=== PATIENT | female | born 1955 | race African-American/Black ===

== ENCOUNTER 2018-04-20 11:28 | Inpatient (IN) | payer OTHER ==
[~2018-04-20] VITALS: Ht 162.6 cm; Wt 85.3 kg
[~2018-04-20 11:28] MED LIST: ASPI-1159 PO; ATOR20TA65 PO; COR12 PO; DIGO125T82 PO; FURO-151 PO; SPIR25TA6 PO; VALS80TA2 PO
[2018-04-20] MEDS ORDERED: KETOROLAC 30MG/ML VIAL IV STA (12:56)
[2018-04-20 13:45] LABS: BASOPHILS % 0.5 % (0.0-2.0); EOSINOPHILS % 2.2 % (0.0-5.0); HEMATOCRIT. 38.2 % (36.0-48.0); HEMOGLOBIN. 12.2 g/dL (12.0-16.0); LYMPHOCYTES % 25.2 % (20.0-50.0); MEAN CORPUSCULAR HEMOGLOBIN 25.6 pg (28.0-32.0); MEAN PLATELET VOLUME 10.1 fl (7.4-10.4); MONOCYTES % 11.5 % (2.0-8.0); NEUTROPHILS % 60.6 % (40.0-76.0); PLATELET 147 x1000/uL (130-400); RED BLOOD CELL COUNT 4.77 mill/uL (4.2-5.4); RED CELL DISTRIBUTION WIDTH 14.8 % (11.6-14.6)
[2018-04-20 13:49] LABS: CHLORIDE 107 mEq/L (98-107)
[2018-04-20 13:50] LABS: INR 1.3; PROTHROMBIN TIME 12.7 sec (9.1-11.1)
[2018-04-20] MEDS ORDERED: ASPIRIN 81MG TABLET PO ONE (16:00)
[2018-04-20] MEDS ORDERED: FUROSEMIDE 20MG/2ML VIAL IVP ONE (16:00)
[2018-04-20] MEDS ORDERED: LORAZEPAM 0.5MG TABLET PO PRN (16:45)
[2018-04-20] MEDS ORDERED: GUAIFENESIN 200MG/10ML SUGAR FREE UDC PO PRN (16:45)
[2018-04-20] MEDS ORDERED: MAGNESIUM/ALUMINUM HYDROXIDE/SIMETHICONE 30ML UDC PO PRN (16:45)
[2018-04-20] MEDS ORDERED: IPRATROPIUM/ALBUTEROL 0.5-3(2.5)MG/3ML NEB INH SCH (16:45)
[2018-04-20] MEDS ORDERED: DOCUSATE SODIUM 100MG CAPSULE PO PRN (16:45)
[2018-04-20] MEDS ORDERED: CLONIDINE 0.1MG TABLET PO PRN (16:45)
[2018-04-20] MEDS ORDERED: IPRATROPIUM/ALBUTEROL 0.5-3(2.5)MG/3ML NEB INH PRN (16:45)
[2018-04-20] MEDS ORDERED: ONDANSETRON HCL 4MG/2ML INJ IV PRN (16:45)
[2018-04-20] MEDS ORDERED: AZITHROMYCIN 500 MG TABLET PO SCH (16:45)
[2018-04-20] MEDS ORDERED: DIPHENHYDRAMINE 50MG/ML VIAL IV PRN (16:45)
[2018-04-20] MEDS ORDERED: ACETAMINOPHEN 650MG SUPP PR PRN (16:45)
[2018-04-20] MEDS ORDERED: HYDROCODONE/ACETAMINOPHEN 5/325MG TABLET PO PRN (16:45)
[2018-04-20] MEDS ORDERED: ACETAMINOPHEN 325MG TABLET PO PRN (16:45)
[2018-04-20 17:40] LABS: BG BASE EXCESS 1.4 mmol/L (-2.0-2.0); BG CARBOXYHEMOGLOBIN 0.8 % (0.5-1.5); BG DEOXYHEMOGLOBIN 3.6 % (0.0-5.0); BG FRACTION INSPIRED OXYGEN 21; BG HCO3 ACT 24.8 mmol/L (22.0-26.0); BG METHEMOGLOBIN 0.4 % (0.0-1.5); BG OXYGEN SATURATION 96.4 % (92.0-98.5); BG OXYHEMOGLOBIN 95.2 % (94.0-97.0); BG PH 7.468 (7.350-7.450); BG PO2 87.7 mmHg (75.0-100.0); BG SAMPLE SITE RIGHT RADIAL; BG TOTAL HEMOGLOBIN 12.7 g/dL (12.0-18.0); BG VENT MODE ROOM AIR
[2018-04-20 18:59] LABS: CLARITY URINE CLEAR (CLEAR); COLOR URINE YELLOW (YELLOW); KETONES URINE NEGATIVE (NEGATIVE); LEUKOCYTE ESTERASE URINE NEGATIVE (NEGATIVE); NITRITE URINE NEGATIVE (NEGATIVE); OCCULT BLOOD URINE NEGATIVE (NEGATIVE); PH URINE 6.5 (4.5-8.0); PROTEIN URINE 1+ (NEGATIVE); SPECIFIC GRAVITY URINE 1.009 (1.005-1.030); UROBILINOGEN URINE 0.2 E.U./dL (0.2-1.0)
[2018-04-20 19:17] LABS: *COCAINE SCREEN URINE NEGATIVE (NEGATIVE); CANNABINOID URINE SCREEN NEGATIVE (NEGATIVE); METHADONE URINE SCREEN NEGATIVE (NEGATIVE); OPIATES URINE SCREEN NEGATIVE (NEGATIVE); PHENCYCLIDINE URINE SCREEN NEGATIVE (NEGATIVE)
[2018-04-20 19:18] LABS: *AMPHETAMINES SCREEN URINE NEGATIVE (NEGATIVE); *BARBITURATES SCREEN URINE NEGATIVE (NEGATIVE); *BENZODIAZEPINES SCREEN URINE NEGATIVE (NEGATIVE)
[2018-04-20] MEDS ORDERED: IPRATROPIUM/ALBUTEROL 0.5-3(2.5)MG/3ML NEB INH NR (20:15)
[2018-04-20] MEDS ORDERED: AZITHROMYCIN 500 MG TABLET PO NR (20:15)
[2018-04-20] MEDS ORDERED: NA PHOS,M-B/NA PHOS,DI-BA ENEMA 118ML PR PRN (21:00)
[2018-04-20 23:52] VITALS: BP 110/65
[2018-04-21] VITALS: BP 110/65
[2018-04-21] MEDS ORDERED: SACU1TAB PO (01:30)
[2018-04-21 04:00] VITALS: BP 100/57
[2018-04-21] MEDS: AZITHROMYCIN 500 MG TABLET PO SCH (05:08)
[2018-04-21 06:58] LABS: CHLORIDE 105 mEq/L (98-107)
[2018-04-21 07:08] LABS: BASOPHILS % 0.7 % (0.0-2.0); EOSINOPHILS % 3.1 % (0.0-5.0); HEMATOCRIT. 36.6 % (36.0-48.0); HEMOGLOBIN. 11.8 g/dL (12.0-16.0); LYMPHOCYTES % 32.3 % (20.0-50.0); MEAN CORPUSCULAR HEMOGLOBIN 25.9 pg (28.0-32.0); MONOCYTES % 10.7 % (2.0-8.0); NEUTROPHILS % 53.2 % (40.0-76.0); RED BLOOD CELL COUNT 4.57 mill/uL (4.2-5.4)
[2018-04-21 07:17] LABS: T4 FREE 1.36 ng/dL (0.76-1.46)
[2018-04-21 07:18] LABS: CREATINE KINASE 76 IU/L (26-192); LDL CHOLESTEROL 45 mg/dL (5-100)
[2018-04-21 07:28] LABS: HDL CHOLESTEROL 31 mg/dL (40-59)
[2018-04-21] MEDS: SPIRONOLACTONE 25MG TABLET PO SCH (08:12)
[2018-04-21] MEDS: LOSARTAN POTASSIUM 50 MG TABLET PO SCH (08:12)
[2018-04-21] MEDS: ENOXAPARIN 40MG/0.4ML SYR SUBCUT SCH (08:13)
[2018-04-21] MEDS ORDERED: MEDICATION NOT ON FORMULARY EA (Spironolactone 25 MG) PO SCH (09:00)
[2018-04-21] MEDS ORDERED: FUROSEMIDE 40MG/4ML VIAL IV SCH (09:00)
[2018-04-21] MEDS ORDERED: MEDICATION NOT ON FORMULARY EA (Valsartan (Diovan) 80 MG) PO SCH (09:00)
[2018-04-21] MEDS ORDERED: POTASSIUM CHLORIDE 20MEQ TABLET SR PO NR (09:15)
[2018-04-21 16:00] VITALS: BP 102/57
[2018-04-21] MEDS: FUROSEMIDE 40MG/4ML VIAL IV SCH (18:13)
[2018-04-21] MEDS: DIGOXIN 125MCG TABLET PO SCH (18:13)
[2018-04-21 20:00] VITALS: BP 110/45
[2018-04-21] MEDS ORDERED: ATORVASTATIN CALCIUM 20MG TABLET PO SCH (21:00)
[2018-04-22 04:00] VITALS: BP_SYST 108; BP_DIAS 44; BP_DIAS 46
[2018-04-22] MEDS: AZITHROMYCIN 500 MG TABLET PO SCH (05:27)
[2018-04-22 06:10] LABS: HEMATOCRIT 34.9 % (36.0-48.0); HEMOGLOBIN 11.3 g/dL (12.0-16.0); MEAN CORPUSCULAR HEMOGLOBIN 25.9 pg (28.0-32.0); MEAN CORPUSCULAR VOLUME 79.8 fL (81.0-99.0); PLATELET 144 x1000/uL (130-400); RED BLOOD CELL COUNT 4.37 mill/uL (4.2-5.4); RED CELL DISTRIBUTION WIDTH 15.2 % (11.6-14.6)
[2018-04-22] MEDS: FUROSEMIDE 40MG/4ML VIAL IV SCH ×2 (06:33→17:43)
[2018-04-22 06:39] LABS: CHLORIDE 106 mEq/L (98-107)
[2018-04-22 08:00] VITALS: BP 100/58
[2018-04-22] MEDS ORDERED: POTASSIUM CHLORIDE 20MEQ TABLET SR PO SCH (09:00)
[2018-04-22] MEDS: LOSARTAN POTASSIUM 50 MG TABLET PO SCH (09:00)
[2018-04-22] MEDS: SPIRONOLACTONE 25MG TABLET PO SCH (09:20)
[2018-04-22] MEDS: ENOXAPARIN 40MG/0.4ML SYR SUBCUT SCH (09:21)
[2018-04-22] MEDS ORDERED: POTASSIUM CHLORIDE 20MEQ TABLET SR PO NR (09:45)
[2018-04-22 12:00] VITALS: BP 115/78
[2018-04-22 16:00] VITALS: BP 111/65
[2018-04-22] MEDS ORDERED: CARVEDILOL 3.125 MG TABLET PO NR (17:41)
[2018-04-22] MEDS: DIGOXIN 125MCG TABLET PO SCH (17:51)
[2018-04-22 19:30] VITALS: BP 113/63
[2018-04-22 20:00] VITALS: BP 100/61
== END 2018-04-22 20:05 | disposition home or self-care (01) | DRG 292 ==
LOC: ER 11:28 → 7WST 15:59 → EDBEDREQTM 16:01 → EDBEDREQ 16:01 → ENRESERV 22:42
PROVIDERS: ADMIT Internal Medicine; ATTEND Internal Medicine
DX: I11.0 Hypertensive heart disease with heart failure (principal); E44.1 Mild protein-calorie malnutrition; I50.23 Acute on chronic systolic (congestive) heart failure; I42.0 Dilated cardiomyopathy; J06.9 Acute upper respiratory infection, unspecified; R73.9 Hyperglycemia, unspecified; E66.9 Obesity, unspecified; E78.5 Hyperlipidemia, unspecified; E87.6 Hypokalemia; I27.20 Pulmonary hypertension, unspecified; I34.0 Nonrheumatic mitral (valve) insufficiency; Z90.710 Acquired absence of both cervix and uterus; Z95.810 Presence of automatic (implantable) cardiac defibrillator; Z88.2 Allergy status to sulfonamides; Z79.82 Long term (current) use of aspirin; Z79.899 Other long term (current) drug therapy; Z68.32 Body mass index [BMI] 32.0-32.9, adult; R06.03 Acute respiratory distress
CPT/HCPCS: 36415; 36600; 71045; 76705; 80048; 80061; 80162; 80305; 82375; 82550; 82553; 82805; 83036; 83880; 84439; 84443; 84484; 85027; 93005; 93306; 93970; 97116; 97162; 97535; 99285; J1650; J1885; J1940; J7620

== ENCOUNTER 2019-05-27 19:07 | Emergency (ER) | payer OTHER ==
[~2019-05-27] VITALS: Ht 162.6 cm; Wt 80.0 kg
[~2019-05-27 19:07] MED LIST changes: -ASPI-1159 PO; +ASPI-1497 PO; -COR12 PO; +DIGO125T PO; -DIGO125T82 PO; -FURO-151 PO; +SACU1TAB PO; -VALS80TA2 PO
[2019-05-27 19:52] VITALS: BP 92/67
[2019-05-27 20:26] LABS: CLARITY URINE CLOUDY (CLEAR); COLOR URINE YELLOW (YELLOW); KETONES URINE TRACE (NEGATIVE); LEUKOCYTE ESTERASE URINE TRACE (NEGATIVE); NITRITE URINE NEGATIVE (NEGATIVE); OCCULT BLOOD URINE NEGATIVE (NEGATIVE); PROTEIN URINE 1+ (NEGATIVE); UROBILINOGEN URINE 0.2 E.U./dL (0.2-1.0)
[2019-05-27] MEDS ORDERED: ACETAMINOPHEN WITH CODEINE 300/30MG TABLET PO STA (20:39)
[2019-05-27] MEDS ORDERED: ASPIRIN 81MG TABLET PO ONE (20:45)
[2019-05-27 21:24] LABS: BASOPHILS % 0.4 % (0.0-2.0); EOSINOPHILS % 2.1 % (0.0-5.0); HEMATOCRIT. 34.2 % (36.0-48.0); HEMOGLOBIN. 11.2 g/dL (12.0-16.0); LYMPHOCYTES % 25.4 % (20.0-50.0); MEAN CORPUSCULAR HEMOGLOBIN 27.1 pg (28.0-32.0); MEAN CORPUSCULAR VOLUME 83.1 fL (81.0-99.0); MEAN PLATELET VOLUME 9.7 fl (7.4-10.4); MONOCYTES % 9.7 % (2.0-8.0); NEUTROPHILS % 62.4 % (40.0-76.0); PLATELET 197 x1000/uL (130-400); RED BLOOD CELL COUNT 4.12 mill/uL (4.2-5.4); RED CELL DISTRIBUTION WIDTH 13.7 % (11.6-14.6)
[2019-05-27 21:30] LABS: CHLORIDE 109 mEq/L (98-107)
[2019-05-27] MEDS ORDERED: FUROSEMIDE 40MG TABLET PO ONE (23:15)
== END 2019-05-27 23:24 | disposition home or self-care (01) ==
LOC: ER 19:07 → CANBEDREQ 05-28 00:22
DX: M54.9 Dorsalgia, unspecified (principal); N30.90 Cystitis, unspecified without hematuria; I50.9 Heart failure, unspecified; I95.9 Hypotension, unspecified; Z88.2 Allergy status to sulfonamides; Z95.0 Presence of cardiac pacemaker; Z79.82 Long term (current) use of aspirin
CPT/HCPCS: 36415; 71045; 80053; 81003; 83880; 84484; 85025; 93005; 99285; Z7610

== ENCOUNTER 2019-06-08 17:28 | Inpatient (IN) | payer OTHER ==
[~2019-06-08] VITALS: Ht 156.2 cm; Wt 83.9 kg
[2019-06-08] MEDS ORDERED: MORPHINE SULFATE 4 MG/ML CPJ (NOT FOR IM USE) IV STA (23:41)
[2019-06-08] MEDS ORDERED: ONDANSETRON HCL 4MG/2ML INJ IV STA (23:41)
[2019-06-08] MEDS ORDERED: CEFTRIAXONE 1 G PREMIX 50 ML IV ONE (23:45)
[2019-06-09 00:02] LABS: CHLORIDE 103 mEq/L (98-107)
[2019-06-09 00:34] LABS: CLARITY URINE CLEAR (CLEAR); COLOR URINE ORANGE (YELLOW); KETONES URINE TRACE (NEGATIVE); LEUKOCYTE ESTERASE URINE TRACE (NEGATIVE); NITRITE URINE NEGATIVE (NEGATIVE); OCCULT BLOOD URINE NEGATIVE (NEGATIVE); PROTEIN URINE TRACE (NEGATIVE); SPECIFIC GRAVITY URINE 1.017 (1.005-1.030)
[2019-06-09 01:23] LABS: EOSINOPHILS % 5.2 % (0.0-5.0); HEMATOCRIT. 33.4 % (36.0-48.0); HEMOGLOBIN. 11.1 g/dL (12.0-16.0); LYMPHOCYTES % 15.7 % (20.0-50.0); MEAN CORPUSCULAR HEMOGLOBIN 28.5 pg (28.0-32.0); MEAN CORPUSCULAR VOLUME 85.9 fL (81.0-99.0); MEAN PLATELET VOLUME 11.3 fl (7.4-10.4); MONOCYTES % 10.8 % (2.0-8.0); NEUTROPHILS % 67.3 % (40.0-76.0); PLATELET 117 x1000/uL (130-400); RED BLOOD CELL COUNT 3.88 mill/uL (4.2-5.4); RED CELL DISTRIBUTION WIDTH 15.3 % (11.6-14.6)
[2019-06-09 08:30] VITALS: BP 90/48
[2019-06-09] MEDS ORDERED: FURO40TA5 PO (09:27)
[2019-06-09] MEDS ORDERED: POTA20LI52 GT (09:27)
[2019-06-09] MEDS ORDERED: PANT40TA4 PO (09:27)
[2019-06-09] MEDS ORDERED: CARV6.2548 PO (09:27)
[2019-06-09] MEDS ORDERED: MAGNESIUM/ALUMINUM HYDROXIDE/SIMETHICONE 30ML UDC PO PRN (11:00)
[2019-06-09] MEDS: FUROSEMIDE 40MG/4ML VIAL IVP SCH ×3 (11:00→21:17)
[2019-06-09] MEDS ORDERED: ACETAMINOPHEN 650MG SUPP PR PRN (11:00)
[2019-06-09] MEDS ORDERED: ONDANSETRON HCL 4MG/2ML INJ IV PRN (11:00)
[2019-06-09] MEDS ORDERED: IPRATROPIUM/ALBUTEROL 0.5-3(2.5)MG/3ML NEB NEB PRN (11:00)
[2019-06-09] MEDS ORDERED: ACETAMINOPHEN 650MG/20.3ML UDC GT PRN (11:00)
[2019-06-09] MEDS ORDERED: LORAZEPAM 0.5MG TABLET PO PRN (11:00)
[2019-06-09] MEDS ORDERED: GUAIFENESIN 200MG/10ML SUGAR FREE UDC PO PRN (11:00)
[2019-06-09] MEDS ORDERED: NA PHOS,M-B/NA PHOS,DI-BA ENEMA 118ML PR PRN (11:00)
[2019-06-09] MEDS ORDERED: MORPHINE SULFATE 2 MG/ML CPJ (NOT FOR IM USE) IV PRN (11:00)
[2019-06-09] MEDS ORDERED: DOCUSATE SODIUM 100MG CAPSULE PO PRN (11:00)
[2019-06-09] MEDS ORDERED: CLONIDINE 0.1MG TABLET PO PRN (11:00)
[2019-06-09] MEDS: ACETAMINOPHEN 325MG TABLET PO PRN ×2 (11:26→21:23)
[2019-06-09 12:00] VITALS: BP 90/50
[2019-06-09] MEDS: FAMOTIDINE 20MG/2ML VIAL IV SCH (13:35)
[2019-06-09] MEDS: PIPERACILLIN/TAZOBACTAM 3.375 G in DEXT 5% WATER 100 ML IV SCH ×2 (13:36→18:57)
[2019-06-09] MEDS: MIDODRINE HCL 5MG TABLET PO PRN (13:59)
[2019-06-09 15:41] LABS: INR 1.2; PROTHROMBIN TIME 12.5 sec (9.6-11.0)
[2019-06-09 15:46] LABS: CHLORIDE 103 mEq/L (98-107)
[2019-06-09 16:00] VITALS: BP 99/54
[2019-06-09 16:10] LABS: DIGOXIN 0.9 ng/mL (0.9-2.0)
[2019-06-09 16:49] LABS: BG BASE EXCESS 0.1 mmol/L (-2.0-2.0); BG CARBOXYHEMOGLOBIN 0.3 % (0.5-1.5); BG DEOXYHEMOGLOBIN 5.9 % (0.0-5.0); BG FRACTION INSPIRED OXYGEN 21; BG HCO3 ACT 24.3 mmol/L (22.0-26.0); BG METHEMOGLOBIN 0.2 % (0.0-1.5); BG OXYGEN SATURATION 94.1 % (92.0-98.5); BG OXYHEMOGLOBIN 93.6 % (94.0-97.0); BG PCO2 37.9 mmHg (35.0-45.0); BG PH 7.425 (7.350-7.450); BG PO2 72.9 mmHg (75.0-100.0); BG SAMPLE SITE RIGHT RADIAL; BG TOTAL HEMOGLOBIN 11.1 g/dL (12.0-18.0); BG VENT MODE ROOM AIR
[2019-06-09 18:03] LABS: BASOPHILS % 0.8 % (0.0-2.0); HEMATOCRIT. 32.6 % (36.0-48.0); HEMOGLOBIN. 10.7 g/dL (12.0-16.0); LYMPHOCYTES % 14.5 % (20.0-50.0); MEAN CORPUSCULAR HEMOGLOBIN 28.4 pg (28.0-32.0); MEAN CORPUSCULAR VOLUME 87.1 fL (81.0-99.0); MEAN PLATELET VOLUME 11.2 fl (7.4-10.4); MONOCYTES % 13.2 % (2.0-8.0); NEUTROPHILS % 64.5 % (40.0-76.0); PLATELET 86 x1000/uL (130-400); RED BLOOD CELL COUNT 3.75 mill/uL (4.2-5.4); RED CELL DISTRIBUTION WIDTH 16.2 % (11.6-14.6)
[2019-06-09 20:05] LABS: PLATELET ESTIMATE DECREASED
[2019-06-10] MEDS: PIPERACILLIN/TAZOBACTAM 3.375 G in DEXT 5% WATER 100 ML IV SCH ×5 (01:56→23:36)
[2019-06-10 07:13] LABS: HEMATOCRIT. 30.1 % (36.0-48.0); MEAN CORPUSCULAR HEMOGLOBIN 28.5 pg (28.0-32.0); MEAN PLATELET VOLUME 10.7 fl (7.4-10.4); RED CELL DISTRIBUTION WIDTH 15.9 % (11.6-14.6)
[2019-06-10 08:00] VITALS: BP 99/44
[2019-06-10 08:00] LABS: CHLORIDE 104 mEq/L (98-107)
[2019-06-10 08:08] LABS: LDL CHOLESTEROL 52 mg/dL (5-100)
[2019-06-10 08:10] LABS: HDL CHOLESTEROL 33 mg/dL (40-59); T4 FREE 1.41 ng/dL (0.76-1.46)
[2019-06-10 08:13] LABS: HEPATITIS B SURFACE ANTIGEN NEGATIVE
[2019-06-10 08:24] LABS: PLATELET ESTIMATE NORMAL
[2019-06-10] MEDS: MIDODRINE HCL 5MG TABLET PO PRN (08:26)
[2019-06-10] MEDS: HYDROCODONE/ACETAMINOPHEN 5/325MG TABLET PO PRN (08:28)
[2019-06-10 08:42] LABS: HEPATITIS A AB IGM NEGATIVE (NEGATIVE)
[2019-06-10] MEDS: FAMOTIDINE 20MG/2ML VIAL IV SCH (11:33)
[2019-06-10] MEDS: FUROSEMIDE 40MG/4ML VIAL IVP SCH (11:33)
[2019-06-10 12:00] VITALS: BP 94/47
[2019-06-10] MEDS ORDERED: LACTULOSE 20G/30ML UDC PO NR (13:30)
[2019-06-10 16:00] VITALS: BP 96/50
[2019-06-10] MEDS: DOCUSATE SODIUM 250MG CAPSULE PO SCH (16:26)
[2019-06-10 17:20] LABS: TOTAL IRON BINDING CAPACITY 410 ug/dL (250-450)
[2019-06-10] MEDS ORDERED: DIGOXIN 125MCG TABLET PO SCH (18:00)
[2019-06-10] MEDS: CARVEDILOL 3.125 MG TABLET PO SCH (20:25)
[2019-06-11 00:04] VITALS: BP 106/51
[2019-06-11 04:48] VITALS: BP 83/41
[2019-06-11] MEDS: PIPERACILLIN/TAZOBACTAM 3.375 G in DEXT 5% WATER 100 ML IV SCH ×2 (06:00→12:57)
[2019-06-11] MEDS: ACETAMINOPHEN 325MG TABLET PO PRN (06:00)
[2019-06-11] MEDS: MIDODRINE HCL 5MG TABLET PO PRN (06:00)
[2019-06-11 06:08] LABS: CHLORIDE 104 mEq/L (98-107)
[2019-06-11 06:37] LABS: BASOPHILS % 1.5 % (0.0-2.0); EOSINOPHILS % 5.8 % (0.0-5.0); HEMATOCRIT. 32.1 % (36.0-48.0); HEMOGLOBIN. 10.6 g/dL (12.0-16.0); LYMPHOCYTES % 20.6 % (20.0-50.0); MEAN CORPUSCULAR HEMOGLOBIN 28.4 pg (28.0-32.0); MEAN CORPUSCULAR VOLUME 86.1 fL (81.0-99.0); MONOCYTES % 14.9 % (2.0-8.0); NEUTROPHILS % 57.2 % (40.0-76.0); RED BLOOD CELL COUNT 3.72 mill/uL (4.2-5.4); RED CELL DISTRIBUTION WIDTH 15.7 % (11.6-14.6)
[2019-06-11] MEDS ORDERED: OMEPRAZOLE 20MG CAPSULE EXTENDED RELEASE PO SCH (07:40)
[2019-06-11 08:00] VITALS: BP 104/50
[2019-06-11] MEDS ORDERED: FUROSEMIDE 40MG/4ML VIAL IVP SCH (09:00)
[2019-06-11] MEDS: DOCUSATE SODIUM 250MG CAPSULE PO SCH (10:07)
[2019-06-11] MEDS: CARVEDILOL 3.125 MG TABLET PO SCH (10:08)
[2019-06-11] MEDS: HYDROCODONE/ACETAMINOPHEN 5/325MG TABLET PO PRN (10:16)
[2019-06-11 12:00] VITALS: BP_SYST 105; BP_SYST 97; BP_SYST 99; BP_DIAS 53; BP_DIAS 54; BP_DIAS 58
[2019-06-11] MEDS ORDERED: MIDO10TA MT (12:41)
[2019-06-11] MEDS ORDERED: BLOO1KIT74 TP (12:41)
[2019-06-11] MEDS ORDERED: HYDR-4001 MT (12:41)
[2019-06-11] MEDS ORDERED: COR3 MT (12:41)
[2019-06-11] MEDS ORDERED: DOCU-138 MT (12:43)
[2019-06-11] MEDS ORDERED: METOCLOPRAMIDE HCL 10MG/2ML VIAL IV SCH (13:00)
[2019-06-11] MEDS ORDERED: LEVO500T2 PO (14:17)
[2019-06-11 15:09] VITALS: BP 108/65
[2019-06-12] MEDS ORDERED: ENOXAPARIN 30MG/0.3ML SYR SUBCUT SCH (09:00)
== END 2019-06-11 15:49 | disposition home or self-care (01) | DRG 682 ==
LOC: ER 17:28 → EDBEDREQDT 06-09 03:02 → EDBEDREQ 06-09 03:02 → EDBEDREQTM 06-09 03:02 → 7WST 06-09 03:02 → ENRESERV 06-09 07:45
PROVIDERS: ADMIT Internal Medicine; ATTEND Internal Medicine
DX: N17.9 Acute kidney failure, unspecified (principal); J18.9 Pneumonia, unspecified organism; J96.01 Acute respiratory failure with hypoxia; I13.0 Hypertensive heart and chronic kidney disease with heart failure and stage 1 through stage 4 chronic kidney disease, or unspecified chronic kidney disease; I42.0 Dilated cardiomyopathy; I50.9 Heart failure, unspecified; D64.9 Anemia, unspecified; E78.5 Hyperlipidemia, unspecified; E80.6 Other disorders of bilirubin metabolism; K57.30 Diverticulosis of large intestine without perforation or abscess without bleeding; D69.6 Thrombocytopenia, unspecified; I08.1 Rheumatic disorders of both mitral and tricuspid valves; K59.00 Constipation, unspecified; E87.5 Hyperkalemia; N18.9 Chronic kidney disease, unspecified; Z85.118 Personal history of other malignant neoplasm of bronchus and lung; Z90.710 Acquired absence of both cervix and uterus; Z79.899 Other long term (current) drug therapy; Z82.3 Family history of stroke; Z82.49 Family history of ischemic heart disease and other diseases of the circulatory system; Z88.2 Allergy status to sulfonamides; Z79.82 Long term (current) use of aspirin
CPT/HCPCS: 36415; 36600; 71045; 71110; 71250; 74018; 74176; 76700; 80053; 80061; 80076; 80162; 81003; 82248; 82270; 82375; 82728; 82805; 83540; 83550; 83605; 83880; 84439; 84443; 84484; 85025; 85049; 86705; 86709; 86803; 87340; 93005; 93306; 93970; 97161; 99285; J0696; J1940; J2270; J2405; J2543; J3490; J7060

== ENCOUNTER 2019-06-29 19:28 | Inpatient (IN) | payer OTHER ==
[~2019-06-29] VITALS: Ht 162.6 cm; Wt 84.4 kg
[~2019-06-29 19:28] MED LIST changes: -ASPI-1497 PO; -ATOR20TA65 PO; +BLOO1KIT74 TP; +COR3 MT; +DOCU-138 MT; +HYDR-4001 MT; +LEVO500T2 PO; +MIDO10TA MT; +PANT40TA4 PO; -SPIR25TA6 PO
[2019-06-29] MEDS ORDERED: ONDANSETRON HCL 4MG/2ML INJ IV ONE (21:30)
[2019-06-29 21:34] LABS: BASOPHILS % 1.4 % (0.0-2.0); EOSINOPHILS % 1.8 % (0.0-5.0); HEMATOCRIT. 38.8 % (36.0-48.0); HEMOGLOBIN. 12.6 g/dL (12.0-16.0); LYMPHOCYTES % 20.5 % (20.0-50.0); MEAN CORPUSCULAR HEMOGLOBIN 27.8 pg (28.0-32.0); MEAN CORPUSCULAR VOLUME 85.9 fL (81.0-99.0); MEAN PLATELET VOLUME 10.9 fl (7.4-10.4); MONOCYTES % 14.5 % (2.0-8.0); NEUTROPHILS % 61.8 % (40.0-76.0); PLATELET 158 x1000/uL (130-400); RED BLOOD CELL COUNT 4.52 mill/uL (4.2-5.4); RED CELL DISTRIBUTION WIDTH 15.7 % (11.6-14.6)
[2019-06-29 21:41] LABS: CHLORIDE 101 mEq/L (98-107)
[2019-06-30] VITALS (25 sets, daily range): BP systolic 90–137; BP diastolic 41–95
[2019-06-30] MEDS ORDERED: FURO-151 PO (00:25)
[2019-06-30] MEDS ORDERED: POTA20TA82 PO (00:25)
[2019-06-30] MEDS ORDERED: ASPI-1497 PO (00:25)
[2019-06-30] MEDS ORDERED: ONDANSETRON HCL 4MG/2ML INJ IV PRN (01:00)
[2019-06-30] MEDS: PANTOPRAZOLE 40MG DR TABLET PO SCH (05:58)
[2019-06-30] MEDS ORDERED: ENOXAPARIN 40MG/0.4ML SYR SUBCUT SCH (09:00)
[2019-06-30] MEDS ORDERED: ASPIRIN 81MG EC TABLET PO SCH (09:00)
[2019-06-30] MEDS: FUROSEMIDE 40MG TABLET PO SCH ×2 (09:14→20:28)
[2019-06-30] MEDS: CARVEDILOL 3.125 MG TABLET PO SCH ×2 (09:14→20:31)
[2019-06-30] MEDS ORDERED: HYDROCODONE/ACETAMINOPHEN 5/325MG TABLET PO PRN (11:00)
[2019-06-30 11:52] LABS: BG BASE EXCESS 2.9 mmol/L (-2.0-2.0); BG CARBOXYHEMOGLOBIN 0.9 % (0.5-1.5); BG DEOXYHEMOGLOBIN 4.3 % (0.0-5.0); BG FRACTION INSPIRED OXYGEN 21; BG HCO3 ACT 25.6 mmol/L (22.0-26.0); BG METHEMOGLOBIN 0.2 % (0.0-1.5); BG OXYGEN SATURATION 95.7 % (92.0-98.5); BG OXYHEMOGLOBIN 94.6 % (94.0-97.0); BG PCO2 33.3 mmHg (35.0-45.0); BG PH 7.504 (7.350-7.450); BG PO2 77.7 mmHg (75.0-100.0); BG SAMPLE SITE RIGHT RADIAL; BG VENT MODE ROOM AIR
[2019-06-30 12:24] LABS: BASOPHILS % 0.8 % (0.0-2.0); EOSINOPHILS % 0.2 % (0.0-5.0); HEMATOCRIT. 40.7 % (36.0-48.0); HEMOGLOBIN. 13.3 g/dL (12.0-16.0); LYMPHOCYTES % 16.9 % (20.0-50.0); MEAN CORPUSCULAR HEMOGLOBIN 28.1 pg (28.0-32.0); MEAN CORPUSCULAR VOLUME 85.8 fL (81.0-99.0); MONOCYTES % 9.5 % (2.0-8.0); NEUTROPHILS % 72.6 % (40.0-76.0); PLATELET 132 x1000/uL (130-400); RED BLOOD CELL COUNT 4.74 mill/uL (4.2-5.4); RED CELL DISTRIBUTION WIDTH 15.6 % (11.6-14.6)
[2019-06-30] MEDS ORDERED: MAGNESIUM 1 G PREMIX 100 ML IV SCH (13:00)
[2019-06-30] MEDS ORDERED: LORAZEPAM 2MG/ML CPJ IV SCH (13:00)
[2019-06-30 13:05] LABS: INR 1.2; PROTHROMBIN TIME 12.5 sec (9.6-11.0)
[2019-06-30] MEDS: LEVETIRACETAM 500MG PREMIX 100 ML IV SCH ×2 (13:31→23:26)
[2019-06-30] MEDS ORDERED: [UNRECOGNIZED DRUG - REMARK] XX SCH (14:30)
[2019-06-30] MEDS ORDERED: LORAZEPAM 2MG/ML CPJ IV PRN (16:45)
[2019-06-30] MEDS ORDERED: ACETAMINOPHEN 650MG SUPP PR PRN (17:00)
[2019-06-30] MEDS: MAGNESIUM OXIDE 400MG TABLET PO SCH (17:21)
[2019-06-30 18:31] LABS: CLARITY URINE CLEAR (CLEAR); COLOR URINE YELLOW (YELLOW); KETONES URINE NEGATIVE (NEGATIVE); LEUKOCYTE ESTERASE URINE NEGATIVE (NEGATIVE); NITRITE URINE NEGATIVE (NEGATIVE); OCCULT BLOOD URINE NEGATIVE (NEGATIVE); PROTEIN URINE NEGATIVE (NEGATIVE)
[2019-06-30 21:01] LABS: CREATINE KINASE 82 IU/L (26-192)
[2019-06-30 21:02] LABS: CREATINE KINASE MB FRACTION < 1.0 ng/mL (0.5-3.6)
[2019-07-01] VITALS (37 sets, daily range): BP systolic 85–126; BP diastolic 39–87
[2019-07-01] MEDS: ACETAMINOPHEN 325MG TABLET PO PRN ×2 (01:44→18:32)
[2019-07-01 05:44] LABS: BASOPHILS % 0.7 % (0.0-2.0); EOSINOPHILS % 0.3 % (0.0-5.0); HEMATOCRIT. 35.3 % (36.0-48.0); HEMOGLOBIN. 11.6 g/dL (12.0-16.0); LYMPHOCYTES % 13.7 % (20.0-50.0); MEAN CORPUSCULAR HEMOGLOBIN 27.9 pg (28.0-32.0); MONOCYTES % 12.4 % (2.0-8.0); NEUTROPHILS % 72.9 % (40.0-76.0); RED BLOOD CELL COUNT 4.16 mill/uL (4.2-5.4); RED CELL DISTRIBUTION WIDTH 15.5 % (11.6-14.6)
[2019-07-01] MEDS: MAGNESIUM OXIDE 400MG TABLET PO SCH (08:30)
[2019-07-01] MEDS: LEVETIRACETAM 500MG PREMIX 100 ML IV SCH ×2 (08:32→21:00)
[2019-07-01] MEDS: FUROSEMIDE 40MG TABLET PO SCH (08:32)
[2019-07-01] MEDS: PANTOPRAZOLE 40MG DR TABLET PO SCH (08:32)
[2019-07-01 09:05] LABS: PLATELET 109 x1000/uL (130-400)
[2019-07-01] MEDS ORDERED: POTASSIUM CHLORIDE 20MEQ/PACKET PO SCH (09:15)
[2019-07-01] MEDS: CARVEDILOL 3.125 MG TABLET PO SCH ×3 (09:40→21:00)
[2019-07-01] MEDS ORDERED: LIDOCAINE HCL 2% 5ML SYRINGE IV SCH (10:00)
[2019-07-01] MEDS ORDERED: LIDOCAINE 2G PREMIX 500 ML IV SCH (10:00)
[2019-07-01] MEDS ORDERED: KCL 20MEQ/100ML PREMIX 100 ML IV SCH (11:00)
[2019-07-01] MEDS ORDERED: POTASSIUM CHLORIDE 20MEQ/PACKET PO NR (13:00)
[2019-07-01] MEDS ORDERED: MAGNESIUM 1 G PREMIX 100 ML IV NR (14:00)
[2019-07-02] VITALS (25 sets, daily range): BP systolic 86–160; BP diastolic 51–123
[2019-07-02] MEDS: MAGNESIUM OXIDE 400MG TABLET PO SCH (08:23)
[2019-07-02] MEDS: PANTOPRAZOLE 40MG DR TABLET PO SCH (08:23)
[2019-07-02] MEDS: CARVEDILOL 3.125 MG TABLET PO SCH (08:24)
[2019-07-02 08:42] LABS: BASOPHILS % 0.7 % (0.0-2.0); HEMATOCRIT. 38.9 % (36.0-48.0); HEMOGLOBIN. 12.7 g/dL (12.0-16.0); LYMPHOCYTES % 12.1 % (20.0-50.0); MEAN CORPUSCULAR HEMOGLOBIN 27.9 pg (28.0-32.0); MEAN CORPUSCULAR VOLUME 85.3 fL (81.0-99.0); MONOCYTES % 13.6 % (2.0-8.0); NEUTROPHILS % 73.6 % (40.0-76.0); RED BLOOD CELL COUNT 4.57 mill/uL (4.2-5.4); RED CELL DISTRIBUTION WIDTH 15.6 % (11.6-14.6)
[2019-07-02] MEDS ORDERED: POTASSIUM CHLORIDE 20MEQ TABLET SR PO SCH (09:00)
[2019-07-02 09:21] LABS: PLATELET ESTIMATE DECREASED
[2019-07-02] MEDS ORDERED: SODIUM CHLORIDE 0.45% 1,000 ML IV SCH (10:00)
[2019-07-02 16:22] LABS: BASOPHILS % 1.1 % (0.0-2.0); EOSINOPHILS % 0.3 % (0.0-5.0); HEMATOCRIT. 38.4 % (36.0-48.0); HEMOGLOBIN. 12.4 g/dL (12.0-16.0); LYMPHOCYTES % 12.8 % (20.0-50.0); MEAN CORPUSCULAR HEMOGLOBIN 27.9 pg (28.0-32.0); MEAN CORPUSCULAR VOLUME 86.3 fL (81.0-99.0); MEAN PLATELET VOLUME 11.3 fl (7.4-10.4); MONOCYTES % 12.4 % (2.0-8.0); NEUTROPHILS % 73.4 % (40.0-76.0); PLATELET 113 x1000/uL (130-400); RED BLOOD CELL COUNT 4.45 mill/uL (4.2-5.4); RED CELL DISTRIBUTION WIDTH 15.7 % (11.6-14.6)
[2019-07-03] VITALS (23 sets, daily range): BP systolic 97–144; BP diastolic 42–81
[2019-07-03 05:56] LABS: BASOPHILS % 1.2 % (0.0-2.0); EOSINOPHILS % 0.7 % (0.0-5.0); HEMATOCRIT. 37.2 % (36.0-48.0); HEMOGLOBIN. 12.2 g/dL (12.0-16.0); LYMPHOCYTES % 18.4 % (20.0-50.0); MEAN CORPUSCULAR VOLUME 85.5 fL (81.0-99.0); MONOCYTES % 14.3 % (2.0-8.0); NEUTROPHILS % 65.4 % (40.0-76.0); RED BLOOD CELL COUNT 4.35 mill/uL (4.2-5.4); RED CELL DISTRIBUTION WIDTH 15.3 % (11.6-14.6)
[2019-07-03] MEDS: PANTOPRAZOLE 40MG DR TABLET PO SCH (08:23)
[2019-07-03] MEDS: POTASSIUM CHLORIDE 20MEQ TABLET SR PO SCH (08:24)
[2019-07-03] MEDS: MAGNESIUM OXIDE 400MG TABLET PO SCH (08:24)
[2019-07-03 10:39] LABS: BG BASE EXCESS 4.5 mmol/L (-2.0-2.0); BG CARBOXYHEMOGLOBIN 0.5 % (0.5-1.5); BG DEOXYHEMOGLOBIN 5.2 % (0.0-5.0); BG FRACTION INSPIRED OXYGEN 21; BG HCO3 ACT 28.3 mmol/L (22.0-26.0); BG METHEMOGLOBIN 0.5 % (0.0-1.5); BG OXYGEN SATURATION 94.7 % (92.0-98.5); BG OXYHEMOGLOBIN 93.8 % (94.0-97.0); BG PCO2 39.1 mmHg (35.0-45.0); BG PH 7.477 (7.350-7.450); BG PO2 73.1 mmHg (75.0-100.0); BG SAMPLE SITE RIGHT RADIAL; BG TOTAL HEMOGLOBIN 13.1 g/dL (12.0-18.0); BG VENT MODE ROOM AIR
[2019-07-03 11:14] LABS: CHLORIDE 100 mEq/L (98-107)
[2019-07-03] MEDS ORDERED: ONDANSETRON HCL 4MG/2ML INJ IV NR (18:45)
[2019-07-04] VITALS (14 sets, daily range): BP systolic 94–163; BP diastolic 50–75
[2019-07-04 06:01] LABS: HEMOGLOBIN 12.6 g/dL (12.0-16.0); MEAN CORPUSCULAR HEMOGLOBIN 27.8 pg (28.0-32.0); MEAN CORPUSCULAR VOLUME 85.6 fL (81.0-99.0); RED BLOOD CELL COUNT 4.55 mill/uL (4.2-5.4); RED CELL DISTRIBUTION WIDTH 15.4 % (11.6-14.6)
[2019-07-04 06:55] LABS: PHOSPHORUS 2.6 mg/dL (2.5-4.9)
[2019-07-04] MEDS: POTASSIUM CHLORIDE 20MEQ TABLET SR PO SCH (08:44)
[2019-07-04] MEDS: MAGNESIUM OXIDE 400MG TABLET PO SCH (08:44)
[2019-07-04] MEDS: PANTOPRAZOLE 40MG DR TABLET PO SCH (08:44)
[2019-07-04] MEDS: ASPIRIN 81MG EC TABLET PO SCH (11:07)
[2019-07-05] VITALS (8 sets, daily range): BP systolic 97–131; BP diastolic 45–68
[2019-07-05 06:32] LABS: HEMATOCRIT. 36.4 % (36.0-48.0); HEMOGLOBIN. 11.8 g/dL (12.0-16.0); MEAN CORPUSCULAR HEMOGLOBIN 27.5 pg (28.0-32.0); MEAN CORPUSCULAR VOLUME 84.8 fL (81.0-99.0); RED CELL DISTRIBUTION WIDTH 15.9 % (11.6-14.6)
[2019-07-05 07:18] LABS: CHLORIDE 100 mEq/L (98-107)
[2019-07-05] MEDS: POTASSIUM CHLORIDE 20MEQ TABLET SR PO SCH (08:49)
[2019-07-05] MEDS: MAGNESIUM OXIDE 400MG TABLET PO SCH (08:49)
[2019-07-05] MEDS: ASPIRIN 81MG EC TABLET PO SCH (08:49)
[2019-07-05] MEDS ORDERED: PANTOPRAZOLE 40MG DR TABLET PO SCH (09:00)
[2019-07-05 10:07] LABS: NUCLEATED RED BLOOD CELLS 2 /100 WBC
[2019-07-05] MEDS ORDERED: METOCLOPRAMIDE HCL 10MG/2ML VIAL IV SCH (13:30)
[2019-07-05] MEDS ORDERED: FURO-151 MT (13:36)
[2019-07-05] MEDS ORDERED: METO5TAB86 MT (13:36)
[2019-07-05] MEDS ORDERED: SACU1TAB MT (13:36)
[2019-07-05] MEDS ORDERED: COR3 MT (13:36)
[2019-07-05] MEDS ORDERED: ASPI-1497 MT (13:36)
== END 2019-07-05 15:20 | disposition home or self-care (01) | DRG 73 ==
LOC: ER 19:28 → 5WST 22:43 → ENRESERV 23:12 → CVICU 06-30 13:20 → 3WST 07-03 16:30
PROVIDERS: ADMIT Internal Medicine; ATTEND Internal Medicine
DX: G90.8 Other disorders of autonomic nervous system (principal); K72.00 Acute and subacute hepatic failure without coma; I42.0 Dilated cardiomyopathy; I50.22 Chronic systolic (congestive) heart failure; I47.2 Ventricular tachycardia; I13.0 Hypertensive heart and chronic kidney disease with heart failure and stage 1 through stage 4 chronic kidney disease, or unspecified chronic kidney disease; R18.8 Other ascites; N17.9 Acute kidney failure, unspecified; E80.6 Other disorders of bilirubin metabolism; I48.0 Paroxysmal atrial fibrillation; N18.3 Chronic kidney disease, stage 3 (moderate); D69.6 Thrombocytopenia, unspecified; E78.5 Hyperlipidemia, unspecified; E87.6 Hypokalemia; I08.1 Rheumatic disorders of both mitral and tricuspid valves; I44.0 Atrioventricular block, first degree; K21.9 Gastro-esophageal reflux disease without esophagitis; Z95.810 Presence of automatic (implantable) cardiac defibrillator; Z79.82 Long term (current) use of aspirin; Z79.899 Other long term (current) drug therapy; Z88.2 Allergy status to sulfonamides
CPT/HCPCS: 36415; 36600; 71045; 71250; 76604; 76700; 76770; 80048; 80053; 80076; 80162; 81003; 82375; 82550; 82553; 82570; 82805; 83735; 83880; 83935; 84100; 84132; 84145; 84300; 84484; 85025; 85027; 93005; 96374; 97162; 99285; J1650; J1953; J2001; J2060; J2405; J2765; J3475; J3480; J3490

== ENCOUNTER 2019-07-26 15:25 | Inpatient (IN) | payer OTHER ==
[~2019-07-26] VITALS: Ht 162.6 cm; Wt 88.9 kg
[~2019-07-26 15:25] MED LIST changes: +ASPI-1497 MT; +ASPI-1497 PO; -DIGO125T PO; +FURO-151 MT; -HYDR-4001 MT; -LEVO500T2 PO; +METO5TAB86 MT; -PANT40TA4 PO; +POTA20TA82 PO; +SACU1TAB MT
[2019-07-26] MEDS ORDERED: ASPIRIN 81MG TABLET PO ONE (17:15)
[2019-07-26] MEDS ORDERED: SODIUM CHLORIDE 0.9% 1,000 ML IV ONE ×2 (17:18→19:14)
[2019-07-26] MEDS: FUROSEMIDE 100MG/10ML VIAL IVP NR ×2 (18:01→20:13)
[2019-07-26 18:51] LABS: CHLORIDE 99 mEq/L (98-107)
[2019-07-26 18:52] LABS: BASOPHILS % 1.3 % (0.0-2.0); EOSINOPHILS % 0.9 % (0.0-5.0); HEMATOCRIT. 37.8 % (36.0-48.0); HEMOGLOBIN. 12.1 g/dL (12.0-16.0); LYMPHOCYTES % 27.7 % (20.0-50.0); MEAN CORPUSCULAR HEMOGLOBIN 26.9 pg (28.0-32.0); MEAN CORPUSCULAR VOLUME 84.2 fL (81.0-99.0); MEAN PLATELET VOLUME 11.8 fl (7.4-10.4); MONOCYTES % 12.1 % (2.0-8.0); PLATELET 113 x1000/uL (130-400); RED BLOOD CELL COUNT 4.49 mill/uL (4.2-5.4); RED CELL DISTRIBUTION WIDTH 16.6 % (11.6-14.6)
[2019-07-26 18:59] LABS: HDL CHOLESTEROL 23 mg/dL (40-59)
[2019-07-26 19:00] LABS: LDL CHOLESTEROL 58 mg/dL (5-100)
[2019-07-26 19:01] LABS: TOTAL IRON BINDING CAPACITY 479 ug/dL (250-450)
[2019-07-26] MEDS ORDERED: VANCOMYCIN 1 G PREMIX 200 ML IV SCH (19:15)
[2019-07-26] MEDS ORDERED: PIPERACILLIN/TAZ 3.375G PREMIX 50 ML IV ONE (19:15)
[2019-07-26 20:01] LABS: CLARITY URINE CLEAR (CLEAR); COLOR URINE DARK YELLOW (YELLOW); KETONES URINE TRACE (NEGATIVE); LEUKOCYTE ESTERASE URINE 1+ (NEGATIVE); NITRITE URINE NEGATIVE (NEGATIVE); OCCULT BLOOD URINE NEGATIVE (NEGATIVE); PROTEIN URINE 1+ (NEGATIVE); SPECIFIC GRAVITY URINE 1.014 (1.005-1.030)
[2019-07-26] MEDS ORDERED: SODIUM CHLORIDE 0.9% 250 ML IV ONE (21:38)
[2019-07-26] MEDS ORDERED: MORPHINE SULFATE 2 MG/ML CPJ (NOT FOR IM USE) IV PRN (22:30)
[2019-07-27] VITALS (12 sets, daily range): BP systolic 77–121; BP diastolic 39–93
[2019-07-27] MEDS ORDERED: HYDROCODONE/ACETAMINOPHEN 5/325MG TABLET PO PRN (03:15)
[2019-07-27] MEDS ORDERED: MORPHINE SULFATE 2 MG/ML CPJ (NOT FOR IM USE) IV PRN (03:15)
[2019-07-27 06:34] LABS: BASOPHILS % 1.4 % (0.0-2.0); EOSINOPHILS % 0.9 % (0.0-5.0); HEMOGLOBIN. 11.7 g/dL (12.0-16.0); LYMPHOCYTES % 24.6 % (20.0-50.0); MEAN CORPUSCULAR HEMOGLOBIN 27.1 pg (28.0-32.0); MEAN CORPUSCULAR VOLUME 83.5 fL (81.0-99.0); MONOCYTES % 14.3 % (2.0-8.0); NEUTROPHILS % 58.8 % (40.0-76.0); RED BLOOD CELL COUNT 4.31 mill/uL (4.2-5.4); RED CELL DISTRIBUTION WIDTH 16.6 % (11.6-14.6)
[2019-07-27 06:43] LABS: CHLORIDE 100 mEq/L (98-107)
[2019-07-27 07:39] LABS: VITAMIN B12 SERUM > 2000.0 pg/mL (211-911)
[2019-07-27] MEDS ORDERED: FUROSEMIDE 40MG/4ML VIAL IVP SCH ×2 (09:00→10:45)
[2019-07-27] MEDS: CARVEDILOL 3.125 MG TABLET PO SCH ×2 (09:00→20:11)
[2019-07-27] MEDS: ENOXAPARIN 30MG/0.3ML SYR SUBCUT SCH (10:38)
[2019-07-27] MEDS ORDERED: MIDODRINE HCL 5MG TABLET PO NR (10:45)
[2019-07-27] MEDS ORDERED: METOLAZONE 2.5MG TABLET PO NR (11:00)
[2019-07-27 14:45] LABS: BG BASE EXCESS -4.8 mmol/L (-2.0-2.0); BG CARBOXYHEMOGLOBIN 0.5 % (0.5-1.5); BG DEOXYHEMOGLOBIN 1.2 % (0.0-5.0); BG HCO3 ACT 18.3 mmol/L (22.0-26.0); BG METHEMOGLOBIN 0.2 % (0.0-1.5); BG OXYGEN SATURATION 98.8 % (92.0-98.5); BG OXYHEMOGLOBIN 98.1 % (94.0-97.0); BG PCO2 28.1 mmHg (35.0-45.0); BG PH 7.431 (7.350-7.450); BG PO2 146.8 mmHg (75.0-100.0); BG SAMPLE SITE RIGHT RADIAL; BG TOTAL HEMOGLOBIN 12.3 g/dL (12.0-18.0); BG VENT MODE NASAL CANNULA
[2019-07-27] MEDS: CEPHALEXIN 250MG CAPSULE PO SCH ×2 (16:02→20:30)
[2019-07-27] MEDS: MIDODRINE HCL 5MG TABLET PO SCH (17:00)
[2019-07-27] MEDS: FUROSEMIDE 100MG/10ML VIAL IVP SCH (17:38)
[2019-07-28] VITALS (11 sets, daily range): BP systolic 74–128; BP diastolic 35–86
[2019-07-28] MEDS: FUROSEMIDE 100MG/10ML VIAL IVP SCH ×2 (06:44→17:12)
[2019-07-28 07:41] LABS: CHLORIDE 100 mEq/L (98-107)
[2019-07-28 07:48] LABS: HEMATOCRIT 34.6 % (36.0-48.0); HEMOGLOBIN 11.1 g/dL (12.0-16.0); MEAN CORPUSCULAR HEMOGLOBIN 26.7 pg (28.0-32.0); MEAN CORPUSCULAR VOLUME 83.5 fL (81.0-99.0); PLATELET 105 x1000/uL (130-400); RED BLOOD CELL COUNT 4.14 mill/uL (4.2-5.4); RED CELL DISTRIBUTION WIDTH 16.5 % (11.6-14.6)
[2019-07-28] MEDS: MIDODRINE HCL 5MG TABLET PO SCH ×3 (08:10→16:06)
[2019-07-28] MEDS: METOLAZONE 2.5MG TABLET PO SCH (08:10)
[2019-07-28] MEDS: CEPHALEXIN 250MG CAPSULE PO SCH ×2 (08:10→20:16)
[2019-07-28] MEDS: ENOXAPARIN 30MG/0.3ML SYR SUBCUT SCH (08:11)
[2019-07-28] MEDS: CARVEDILOL 3.125 MG TABLET PO SCH ×2 (08:12→20:17)
[2019-07-28] MEDS: POTASSIUM CHLORIDE 20MEQ TABLET SR PO SCH (10:40)
[2019-07-28] MEDS ORDERED: METOLAZONE 2.5MG TABLET PO NR (17:00)
[2019-07-29] VITALS (13 sets, daily range): BP systolic 76–103; BP diastolic 42–75
[2019-07-29 06:35] LABS: HEMATOCRIT 35.2 % (36.0-48.0); HEMOGLOBIN 11.6 g/dL (12.0-16.0); MEAN CORPUSCULAR HEMOGLOBIN 27.3 pg (28.0-32.0); MEAN CORPUSCULAR VOLUME 82.8 fL (81.0-99.0); PLATELET 109 x1000/uL (130-400); RED BLOOD CELL COUNT 4.25 mill/uL (4.2-5.4); RED CELL DISTRIBUTION WIDTH 16.6 % (11.6-14.6)
[2019-07-29] MEDS: FUROSEMIDE 100MG/10ML VIAL IVP SCH (08:04)
[2019-07-29] MEDS: METOLAZONE 2.5MG TABLET PO SCH (08:05)
[2019-07-29] MEDS: MIDODRINE HCL 5MG TABLET PO SCH ×2 (08:05→12:44)
[2019-07-29] MEDS: CEPHALEXIN 250MG CAPSULE PO SCH (08:05)
[2019-07-29] MEDS: ENOXAPARIN 30MG/0.3ML SYR SUBCUT SCH (08:05)
[2019-07-29] MEDS: POTASSIUM CHLORIDE 20MEQ TABLET SR PO SCH (08:05)
[2019-07-29] MEDS: CARVEDILOL 3.125 MG TABLET PO SCH (08:06)
[2019-07-29] MEDS ORDERED: METOLAZONE 2.5MG TABLET PO NR (10:00)
[2019-07-29] MEDS ORDERED: FURO80TA87 MT (12:00)
[2019-07-29] MEDS ORDERED: POTA20TA82 MT (12:00)
[2019-07-29] MEDS ORDERED: MIDO10TA MT (12:00)
[2019-07-29] MEDS ORDERED: COR3 MT (12:00)
[2019-07-29] MEDS ORDERED: METO10TA8 PO (12:00)
[2019-07-30] MEDS ORDERED: METOLAZONE 2.5MG TABLET PO SCH (09:00)
== END 2019-07-29 15:30 | disposition home or self-care (01) | DRG 291 ==
LOC: ER 15:25 → ENRESERV 23:00 → 3WST 07-27 00:50
PROVIDERS: ADMIT Internal Medicine; ATTEND Internal Medicine
DX: I13.0 Hypertensive heart and chronic kidney disease with heart failure and stage 1 through stage 4 chronic kidney disease, or unspecified chronic kidney disease (principal); I50.33 Acute on chronic diastolic (congestive) heart failure; N39.0 Urinary tract infection, site not specified; R17 Unspecified jaundice; E87.1 Hypo-osmolality and hyponatremia; I48.0 Paroxysmal atrial fibrillation; I42.0 Dilated cardiomyopathy; D69.6 Thrombocytopenia, unspecified; N18.9 Chronic kidney disease, unspecified; I95.9 Hypotension, unspecified; Z95.810 Presence of automatic (implantable) cardiac defibrillator; Z79.899 Other long term (current) drug therapy; I08.1 Rheumatic disorders of both mitral and tricuspid valves
CPT/HCPCS: 36415; 36600; 71045; 74176; 80048; 80053; 80061; 81003; 82375; 82607; 82805; 83540; 83550; 83605; 83735; 83880; 84443; 84484; 85025; 85027; 87077; 87186; 93005; 93970; 97116; 97162; 99291; J1650; J1940; J2270; J2543; J3370; J7030; J7050